=== PATIENT | female | born 1995 | race Two or more races ===

== ENCOUNTER 2024-10-22 15:53 | Emergency (ER) | payer MEDICAID ==
[~2024-10-22] VITALS: Ht 167.6 cm; Wt 50.8 kg
[2024-10-22 16:17] VITALS: O2SAT 99
[2024-10-22] MEDS ORDERED: HYDR-501 PO (17:15)
== END 2024-10-22 17:29 | disposition home or self-care (01) ==
LOC: ER 15:53
DX: L42 Pityriasis rosea (principal)
CPT/HCPCS: A4606; A4663